=== PATIENT | female | born 1955 | race Caucasian/White ===

== ENCOUNTER 2016-08-01 05:57 | Day surgery (SDC) | payer OTHER ==
[~2016-08-01] VITALS: Ht 167.6 cm; Wt 94.3 kg
[~2016-08-01 05:57] MED LIST: ADULT ASPIRIN E81 MG PO; LIPITOR10 M1 PO; METFORMIN500 M1 PO; MULTI FOR HER PO; MYRBETRIQ25 MG PO; TRIAM/HCTZ1 CAP PO
[2016-08-01 07:40] VITALS: BP 85/47
== END 2016-08-01 08:15 | disposition home or self-care (01) | DRG 951 ==
LOC: ENDO 05:57
PROVIDERS: ATTEND Surgery
PROC: 0DJD8ZZ Inspection of Lower Intestinal Tract, Via Natural or Artificial Opening Endoscopic (ICD-10-PCS; principal; 2016-08-01)
DX: Z12.11 Encounter for screening for malignant neoplasm of colon (principal); Q43.9 Congenital malformation of intestine, unspecified; I10 Essential (primary) hypertension; E11.9 Type 2 diabetes mellitus without complications; Z79.84 Long term (current) use of oral hypoglycemic drugs
CPT/HCPCS: G0104